=== PATIENT | male | born 1990 ===

== ENCOUNTER 2019-02-20 09:59 | Emergency (ER) | payer OTHER ==
--- NOTE | 2019-02-20 11:18 | UC ---
Throat Pain/Nasal Natanael HPI - HPI Summary HPI Summary: Sore throat starting this morning. Patient denies any fever or chills. No vomiting or diarrhea however he did have mild nausea this morning - History of Current Complaint Chief Complaint: UCGeneralIllness Stated Complaint: THROAT COMPLAINT Time Seen by Provider: 02/20/19 10:47 Hx Obtained From: Patient Onset/Duration: Gradual Onset Severity: Mild Pain Intensity: 6 Cough: None Associated Signs & Symptoms: Positive: Negative - Epiglottits Risk Factors Epiglottis Risk Factors: Negative - Allergies/Home Medications Allergies/Adverse Reactions: Allergies Allergy/AdvReac Type Severity Reaction Status Date / Time No Known Allergies Allergy Verified 02/20/19 10:16 Home Medications: Home Medications NK [No Home Medications Reported] 02/20/19 [History Confirmed 02/20/19] PMH/Surg Hx/FS Hx/Imm Hx Previously Healthy: Yes - Surgical History Surgical History: None - Family History Known Family History: Positive: Non-Contributory - Social History Alcohol Use: Weekly Substance Use Type: None Smoking Status (MU): Never Smoked Tobacco Review of Systems All Other Systems Reviewed And Are Negative: Yes ENT: Positive: Sore Throat Is Patient Immunocompromised?: No Physical Exam Triage Information Reviewed: Yes Appearance: Well-Appearing, No Pain Distress, Well-Nourished Vital Signs: Initial Vital Signs Temp 97.6 F 02/20/19 10:09 Pulse 72 02/20/19 10:09 Resp 20 02/20/19 10:09 BP 114/89 02/20/19 10:09 Pulse Ox 100 02/20/19 10:09 Vital Signs Reviewed: Yes Eyes: Positive: Conjunctiva Clear ENT: Positive: Pharyngeal erythema - Very minimal tonsillar erythema, no tonsillar enlargement, no exudate. Uvula is midline., TMs normal, Uvula midline. Negative: Tonsillar swelling, Tonsillar exudate Neck: Positive: Supple, Nontender, No Lymphadenopathy Respiratory: Positive: Lungs clear, Normal breath sounds, No respiratory distress, No accessory muscle use Cardiovascular: Positive: RRR, No Murmur, Pulses Normal, Brisk Capillary Refill Musculoskeletal Exam: Normal Neurological Exam: Normal Psychological Exam: Normal Skin Exam: Normal Throat Pain/Nasal Course/Dx - Course Course Of Treatment: Rapid strep test was negative. - Differential Dx/Diagnosis Provider Diagnosis: Pharyngitis Discharge - Sign-Out/Discharge Documenting (check all that apply): Patient Departure All imaging exams completed and their final reports reviewed: No Studies - Discharge Plan Condition: Fair Disposition: HOME Patient Education Materials: Pharyngitis (ED) Referrals: [facility] [Outside] No Primary Care Phys,NOPCP [Primary Care Provider] - Additional Instructions: Warm salt water gargles, throat lozenges, Follow up at the [facility] clinic in 3-4 days if no improvement. Tylenol or Motrin as directed for pain/ fever. - Billing Disposition and Condition Condition: FAIR Disposition: Home
== END 2019-02-20 11:25 | disposition home or self-care (01) ==
LOC: UCEAST 09:59
DX: J02.9 Acute pharyngitis, unspecified (principal)
CPT/HCPCS: 87651; 99201; G0463

== ENCOUNTER 2019-11-09 13:10 | Emergency (ER) | payer OTHER ==
--- NOTE | 2019-11-09 13:40 | UC ---
Eye Complaint HPI - HPI Summary HPI Summary: 28-year-old male comes in with a chief complaint of left ear pain. Patient has a history of seborrheic dermatitis. He's had an outbreak on both of his ears. In the last day he is developed left ear pain and he feels like his ear is swollen. No runny nose no sore throat no cough no shortness of breath no fever. Has been using a topical antifungal [id number] which does not seem to be helping. He does use head and shoulders shampoo. - History of Current Complaint Chief Complaint: UCSkin Stated Complaint: EAR PAIN Time Seen by Provider: 11/09/19 13:22 Pain Intensity: 4 - Allergies/Home Medications Allergies/Adverse Reactions: Allergies Allergy/AdvReac Type Severity Reaction Status Date / Time No Known Allergies Allergy Verified 11/09/19 13:19 Home Medications: Home Medications Amoxicillin/Clavulanate TAB* [Augmentin TAB 875*] 875 mg PO BID #20 tab [Rx] LevoCETirizine TAB (NF) [Xyzal TAB (NF)] 5 mg PO DAILY 11/09/19 [History Confirmed 11/09/19] Ofloxacin 0.3% (Ear Drop)* [Floxin 0.3% OTIC.GOPI (Ear Drop)] 5 drop LEFT EAR BID #1 btl 11/09/19 [Rx] PMH/Surg Hx/FS Hx/Imm Hx Previously Healthy: Yes - seborrheic dermatitis - Surgical History Surgical History: None - Family History Known Family History: Positive: Non-Contributory - Social History Alcohol Use: Occasionally Substance Use Type: Marijuana Substance Use Comment - Amount & Last Used: occasional Smoking Status (MU): Never Smoked Tobacco Review of Systems All Other Systems Reviewed And Are Negative: Yes Constitutional: Positive: Negative Skin: Positive: Other - SEE HPI Eyes: Positive: Negative ENT: Positive: Ear Ache Respiratory: Positive: Negative Cardiovascular: Positive: Negative Motor: Positive: Negative Neurovascular: Positive: Negative Musculoskeletal: Positive: Negative Neurological/Mental Status: Positive: Negative Psychological: Positive: Negative Is Patient Immunocompromised?: No Physical Exam Appearance: Well-Appearing, No Pain Distress, Well-Nourished Vital Signs: Initial Vital Signs Temp 98.5 F 11/09/19 13:14 Pulse 97 11/09/19 13:14 Resp 14 11/09/19 13:14 BP 133/84 11/09/19 13:14 Pulse Ox 100 11/09/19 13:14 Vital Signs Reviewed: Yes Eye Exam: Normal Eyes: Positive: Conjunctiva Clear ENT: Positive: Other - Both ears have some inflammation on the pinna with seborrheic dermatitis. The left ear canal is swollen and patient reports pain with otoscopic examination. TMs appear normal. Neck: Positive: Supple Respiratory: Positive: Lungs clear, Normal breath sounds, No respiratory distress Cardiovascular: Positive: RRR Musculoskeletal: Positive: Strength Intact, No Edema Neurological: Positive: Alert, Muscle Tone Normal Psychological: Positive: Age Appropriate Behavior Skin: Positive: Other - Seborrheic dermatitis of both pinna Eye Complaint Course/Dx - Course Course Of Treatment: Due to the inflammation in the ear canal we'll treat both topically and orally with antibiotics. I left the patient know that he can continue to use the anti- fungal topically if helpful at all. He can also use head and shoulders topically on his years. Follow-up with dermatology. Reevaluated sooner if worse or any questions or concerns. - Differential Dx/Diagnosis Provider Diagnosis: Left otitis externa, Seborrhea Discharge ED - Sign-Out/Discharge Documenting (check all that apply): Patient Departure All imaging exams completed and their final reports reviewed: No Studies - Discharge Plan Condition: Stable Disposition: HOME Prescriptions: Amoxicillin/Clavulanate TAB* [Augmentin TAB 875*] 875 mg PO BID #20 tab Ofloxacin 0.3% (Ear Drop)* [Floxin 0.3% OTIC.GOPI (Ear Drop)] 5 drop LEFT EAR BID #1 btl Patient Education Materials: Otitis Externa (ED), Seborrheic Dermatitis (DC) Referrals: Staci Florentino [Medical Doctor] - Chrystal Lombardi MD [Medical Doctor] - Additional Instructions: FOLLOW UP WITH DERMATOLOGY. GET REEVALUATED IF NOT IMPROVED OR WORSE OR ANY QUESTIONS OR CONCERNS. - Billing Disposition and Condition Condition: STABLE Disposition: Home
== END 2019-11-09 13:44 | disposition home or self-care (01) ==
LOC: UCEAST 13:10
DX: H60.92 Unspecified otitis externa, left ear (principal); L21.9 Seborrheic dermatitis, unspecified
CPT/HCPCS: 99212; G0463